=== PATIENT | female | born 1965 | race Caucasian/White ===

== ENCOUNTER 2018-01-25 17:54 | Observation (INO) | payer BC ==
[~2018-01-25] VITALS: Ht 167.6 cm; Wt 104.3 kg
[2018-01-25] MEDS: D5.45%NS/KCL 20MEQ 1,000 ML IV SCH (00:10)
[2018-01-25 20:13] LABS: BASOPHILS % 0.5 % (0.0-1.0); EOSINOPHILS # (AUTO) 0.2 (0.0-0.4); EOSINOPHILS % 4.3 % (0.0-6.0); HEMOGLOBIN 14.4 g/dL (12.0-16.0); LYMPHOCYTES # (AUTO) 1.9 (1.0-3.2); LYMPHOCYTES % 34.8 % (18.0-39.1); MEAN CORPUSCULAR HEMOGLOBIN 31.5 pg (28-32); MEAN CORPUSCULAR HGB CONC 32.7 g/dL (31-35); MEAN CORPUSCULAR VOLUME 96.3 fL (81-99); MONOCYTES # (AUTO) 0.5 (0.2-0.8); MONOCYTES % 9.2 % (4.4-11.3); NEUTROPHILS # (AUTO) 2.8 (2.1-6.9); PLATELET COUNT 175 x10e3/uL (140-360); RED BLOOD COUNT 4.57 x10e6/uL (3.6-5.1); RED CELL DISTRIBUTION WIDTH 11.9 % (11.7-14.4)
[2018-01-25 20:29] LABS: ALANINE AMINOTRANSFERASE 48 IU/L (0-55); ALBUMIN 3.8 g/dL (3.5-5.0); ALKALINE PHOSPHATASE 67 IU/L (40-150); ANION GAP 14.3 mmol/L (8-16); BLOOD UREA NITROGEN 8 mg/dL (7-26); BUN/CREATININE RATIO 11 (6-25); CALCIUM 9.4 mg/dL (8.4-10.2); CARBON DIOXIDE 23 mmol/L (22-29); CHLORIDE 104 mmol/L (98-107); CREATININE, SERUM 0.71 mg/dL (0.57-1.11); EST GLOMERULAR FILTRATION RATE > 60 ML/MIN (60-); POTASSIUM 3.3 mmol/L (3.5-5.1); SODIUM 138 mmol/L (136-145)
[2018-01-25 20:32] LABS: GLUCOSE 58 mg/dL (74-118); INR 0.97; PROTHROMBIN TIME 13.8 seconds (11.9-14.5)
[2018-01-25 20:33] LABS: PARTIAL THROMBOPLASTIN TIME 42.7 seconds (23.8-35.5)
[2018-01-25] MEDS ORDERED: GABAPENTIN300 MG PO (20:33)
[2018-01-25] MEDS ORDERED: HYDROCODON-ACE1 EA12 PO (20:33)
[2018-01-25] MEDS ORDERED: BELBUCA PO (20:33)
[2018-01-25] MEDS ORDERED: TIZANIDINE HCL4 MG PO (20:33)
[2018-01-25] MEDS ORDERED: DEXTROSE 50% SYRINGE 50 ML IV ONE ×2 (20:36→21:00)
[2018-01-25] MEDS ORDERED: D5NS/KCL 20MEQ 1,000 ML IV ONE (20:45)
[2018-01-25] MEDS ORDERED: DEXTROSE 5%/0.9% SOD CHL 1,000 ML IV SCH (20:45)
[2018-01-25] MEDS ORDERED: HYDROMORPHONE 1MG/1ML INJ IV PRN (21:00)
[2018-01-25] MEDS: PIPER-TAZ 3.375 GM 50 ML IV SCH (21:22)
[2018-01-25] MEDS: VANCOMYCIN 1GM/NS 250 ML 250 ML IV SCH (21:37)
[2018-01-25 22:30] VITALS: BP 130/62
[2018-01-25 23:00] VITALS: BP 130/62
[2018-01-26] VITALS (9 sets, daily range): BP systolic 98–122; BP diastolic 55–76
[2018-01-26 05:17] LABS: BASOPHILS % 0.6 % (0.0-1.0); EOSINOPHILS # (AUTO) 0.2 (0.0-0.4); EOSINOPHILS % 4.3 % (0.0-6.0); HEMATOCRIT 37.4 % (34.2-44.1); HEMOGLOBIN 12.7 g/dL (12.0-16.0); LYMPHOCYTES # (AUTO) 1.5 (1.0-3.2); MEAN CORPUSCULAR VOLUME 94.2 fL (81-99); MONOCYTES # (AUTO) 0.6 (0.2-0.8); MONOCYTES % 11.3 % (4.4-11.3); NEUTROPHILS # (AUTO) 2.6 (2.1-6.9); NEUTROPHILS % 52.6 % (38.7-80.0); PLATELET COUNT 155 x10e3/uL (140-360); RED BLOOD COUNT 3.97 x10e6/uL (3.6-5.1); RED CELL DISTRIBUTION WIDTH 11.9 % (11.7-14.4)
[2018-01-26 05:39] LABS: ALANINE AMINOTRANSFERASE 38 IU/L (0-55); ALBUMIN 3.1 g/dL (3.5-5.0); ALKALINE PHOSPHATASE 51 IU/L (40-150); ANION GAP 10.7 mmol/L (8-16); BLOOD UREA NITROGEN 6 mg/dL (7-26); BUN/CREATININE RATIO 9 (6-25); CALCIUM 8.5 mg/dL (8.4-10.2); CARBON DIOXIDE 24 mmol/L (22-29); CHLORIDE 107 mmol/L (98-107); CREATININE, SERUM 0.69 mg/dL (0.57-1.11); EST GLOMERULAR FILTRATION RATE > 60 ML/MIN (60-); GLUCOSE 115 mg/dL (74-118); POTASSIUM 3.7 mmol/L (3.5-5.1); SODIUM 138 mmol/L (136-145)
[2018-01-26] MEDS: PIPER-TAZ 3.375 GM 50 ML IV SCH ×3 (05:59→22:35)
[2018-01-26] MEDS: VANCOMYCIN 1GM/NS 250 ML 250 ML IV SCH (09:55)
[2018-01-26] MEDS: D5.45%NS/KCL 20MEQ 1,000 ML IV SCH (10:00)
--- NOTE | 2018-01-26 10:42 | NUR ---
CASE MANAGEMENT INITIAL ASSESSMENT H[employer] C[employer] Specialist to bedside to discuss plan of care with patient/family. CM/SW role and care transitions discussed. Anticipated discharge plan discussed along with duration of care. CM/SW discussed patients right to make decisions in care. CM/SW work hours given. 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 Name and number was also written on the patients whiteboard. Patient verbalized understanding of discussion. CM will follow-up with ongoing discharge and transition of care needs.
--- NOTE | 2018-01-26 17:10 | NUR ---
patient to OR at this time.
[2018-01-26] MEDS ORDERED: BUPIVACAINE 0.5%/EPI 30 ML SDV INJ ONE (17:22)
[2018-01-26] MEDS ORDERED: FENTANYL CITRATE/PF 100MCG/2 ML INJ ONE (17:52)
--- NOTE | 2018-01-26 18:14 | NUR ---
patient back from OR. alert and oriented. states pain improved. dressing dry and intact. meal provided. vitals stable.
--- NOTE | 2018-01-26 18:30 | Operative Report ---
DATE OF PROCEDURE: January 26, 2018 PREOPERATIVE DIAGNOSIS: Abdominal wall abscess. POSTOPERATIVE DIAGNOSIS: Abdominal wall abscess. OPERATIVE PROCEDURE: Incision and drainage of abdominal wall abscess. ANESTHESIA: General, Dr. Sultana. INDICATIONS: A 52-year-old female with a 1-week history of swelling, redness and tenderness in the abdominal wall which is consistent with abscess formation. Patient has consented for incisional drainage under anesthesia. Attendant risks discussed. PROCEDURE FINDINGS: Abscess in the deep subcutaneous tissue in the right lower quadrant abdominal wall. DESCRIPTION OF PROCEDURE: Patient was brought to the OR and placed in supine position. The abdomen was prepped with alcohol and draped in sterile fashion. Local anesthesia of half percent lidocaine and epinephrine was injected into the skin and subcutaneous tissue around the abscess area. A longitudinal incision was made approximately 3 cm on the roof of the abscess, deepening into the cavity. Purulent material was swabbed for culture and sensitivity. Digital exploration was carried out in the cavity to break up all loculation, which was then irrigated with saline solution. The wound was then packed with iodoform gauze tight for hemostasis, which was achieved. Dressing applied. Patient tolerated procedure well, was then transported after awakened from anesthesia to the recovery room. Estimated blood loss 3 mL. Job#: [id number] EV
--- NOTE | 2018-01-26 19:20 | NUR ---
Report received and walking rounds complete. Pt resting in bed and in no apparent distress. All safety measures ensured and pt call garcia near. Pt encouraged to use call garcia for assistance.
[2018-01-26] MEDS ORDERED: MIDAZOLAM HCL 2 MG/2 ML VIAL ONE (19:49)
[2018-01-26] MEDS ORDERED: LIDOCAINE HCL 2% LOCAL INJ 5 ML SDV VIAL INJ ONE (20:07)
[2018-01-26] MEDS ORDERED: ONDANSETRON HCL INJ 2 MG/ML VIAL ONE (20:07)
[2018-01-26] MEDS ORDERED: SEVOFLURANE INHAL SOLN 250 ML PEN BTL ONE (20:07)
[2018-01-26] MEDS ORDERED: PROPOFOL IV EMULSION 10 MG/ML 20 ML VIAL ONE (20:07)
[2018-01-26] MEDS ORDERED: DEXAMETHASONE SOD PHOS INJ 4 MG/ML VIAL ONE (20:07)
[2018-01-26] MEDS: ONDANSETRON HCL INJ 2 MG/ML VIAL IV PRN (22:35)
[2018-01-26] MEDS: HYDROMORPHONE 2MG/ML 2 MG/ML ML IV PRN (22:35)
[2018-01-27] VITALS (7 sets, daily range): BP systolic 88–122; BP diastolic 51–76
[2018-01-27] MEDS: VANCOMYCIN 1GM/NS 250 ML 250 ML IV SCH ×2 (01:24→13:58)
[2018-01-27] MEDS: D5.45%NS/KCL 20MEQ 1,000 ML IV SCH ×3 (01:24→16:08)
[2018-01-27] MEDS: PIPER-TAZ 3.375 GM 50 ML IV SCH ×3 (05:25→21:19)
--- NOTE | 2018-01-27 06:53 | NUR ---
report given to oncoming nurse
[2018-01-27] MEDS: ONDANSETRON HCL INJ 2 MG/ML VIAL IV PRN ×2 (09:43→21:40)
[2018-01-27] MEDS: HYDROMORPHONE 2MG/ML 2 MG/ML ML IV PRN ×3 (09:43→21:40)
--- NOTE | 2018-01-27 19:23 | NUR ---
Report received and walking rounds complete. Pt resting in bed and in no apparent distress. All safety measures ensured, bed alarm on, and pt call garcia near. Pt encouraged to use call garcia for assistance.
[2018-01-28] VITALS (7 sets, daily range): BP systolic 92–124; BP diastolic 50–72
[2018-01-28] MEDS: VANCOMYCIN 1GM/NS 250 ML 250 ML IV SCH ×2 (02:20→14:42)
[2018-01-28] MEDS: D5.45%NS/KCL 20MEQ 1,000 ML IV SCH ×3 (02:26→21:45)
[2018-01-28 05:46] LABS: BASOPHILS % 0.2 % (0.0-1.0); EOSINOPHILS # (AUTO) 0.1 (0.0-0.4); EOSINOPHILS % 1.8 % (0.0-6.0); HEMATOCRIT 36.3 % (34.2-44.1); LYMPHOCYTES # (AUTO) 2.2 (1.0-3.2); LYMPHOCYTES % 39.5 % (18.0-39.1); MEAN CORPUSCULAR HEMOGLOBIN 31.5 pg (28-32); MEAN CORPUSCULAR HGB CONC 33.1 g/dL (31-35); MEAN CORPUSCULAR VOLUME 95.3 fL (81-99); MONOCYTES # (AUTO) 0.5 (0.2-0.8); MONOCYTES % 8.9 % (4.4-11.3); NEUTROPHILS # (AUTO) 2.7 (2.1-6.9); NEUTROPHILS % 49.1 % (38.7-80.0); PLATELET COUNT 147 x10e3/uL (140-360); RED BLOOD COUNT 3.81 x10e6/uL (3.6-5.1); RED CELL DISTRIBUTION WIDTH 12.1 % (11.7-14.4)
[2018-01-28 05:59] LABS: ANION GAP 11.3 mmol/L (8-16); BLOOD UREA NITROGEN 10 mg/dL (7-26); BUN/CREATININE RATIO 14 (6-25); CALCIUM 8.4 mg/dL (8.4-10.2); CARBON DIOXIDE 23 mmol/L (22-29); CHLORIDE 108 mmol/L (98-107); CREATININE, SERUM 0.73 mg/dL (0.57-1.11); EST GLOMERULAR FILTRATION RATE > 60 ML/MIN (60-); GLUCOSE 93 mg/dL (74-118); MAGNESIUM 2.2 MG/DL (1.3-2.1); POTASSIUM 4.3 mmol/L (3.5-5.1); SODIUM 138 mmol/L (136-145)
[2018-01-28] MEDS: PIPER-TAZ 3.375 GM 50 ML IV SCH ×3 (06:04→22:00)
[2018-01-28 06:07] LABS: B-TYPE NATRIURETIC PEPTIDE2 177.4 pg/mL (0-100)
[2018-01-28 06:25] LABS: FREE T4 (FREE THYROXINE) 1.14 ng/dL (0.9-1.8); THYROID STIMULATING HORMONE 1.562 uIU/mL (0.350-4.940)
[2018-01-28] MEDS: ONDANSETRON HCL INJ 2 MG/ML VIAL IV PRN ×3 (06:49→14:57)
[2018-01-28] MEDS: HYDROMORPHONE 2MG/ML 2 MG/ML ML IV PRN (06:49)
--- NOTE | 2018-01-28 07:25 | NUR ---
report given to oncoming nurse
--- NOTE | 2018-01-28 07:30 | NUR ---
pt resting in bed, no s/s distress at this time. no c/o pain. will continue to monitor.
[2018-01-28] MEDS: MORPHINE SULFATE INJ 4 MG/ML INJ IV PRN ×2 (08:56→14:57)
--- NOTE | 2018-01-28 08:57 | NUR ---
per Isa SORTING MACHINE ATTENDANT, changing pain med. may give dose now with zofran. pt laying in bed, no s/s distress
[2018-01-28] MEDS ORDERED: BISMUTH SUBSALICYLATE 262 MG TAB PO PRN (12:00)
[2018-01-28] MEDS: ACETAMINOPHEN/CODEINE 300MG - 30MG TAB PO PRN ×2 (12:53→19:55)
--- NOTE | 2018-01-28 13:20 | NUR ---
CM SPOKE TO PATIENT AT BEDSIDE REGARDING HOME HEALTH ORDER BY MD. PATIENT INFORMED OF HOME HEALTH SERVICES AND VERBALLY AGREED. PATIENT STATES SHE DOES NOT HAVE ANY PREFERENCE. PATIENT GIVEN CHOICES COVERED BY INSURANCE AND NOT COVERED BY INSURANCE. PATIENT CHOSE [employer]. CHOICE LETTER SIGNED AND PLACED IN CHART. CLINICAL SENT TO [facility] @ [phone]. WOUND CARE INSTRUCTIONS NEED TO BE SENT IN AM AFTER SURGEON MAKES ROUNDS TONIGHT. SW NOTIFIED. PENDING ACCEPTANCE. [employer], [employer]. Address: [address] [place] [address], [facility] [address], [place] [address]
--- NOTE | 2018-01-28 22:00 | NUR ---
Patient in bed c/o of pain. Pain med given as ordered by MD.
[2018-01-29] VITALS: BP 84/50
[2018-01-29] MEDS: VANCOMYCIN 1GM/NS 250 ML 250 ML IV SCH (01:27)
--- NOTE | 2018-01-29 03:00 | NUR ---
Patient c/o of pain to abd. Given med as ordered by MD.
[2018-01-29 04:00] VITALS: BP 106/64
[2018-01-29] MEDS: PIPER-TAZ 3.375 GM 50 ML IV SCH (05:11)
[2018-01-29 05:46] LABS: BASOPHILS % 0.4 % (0.0-1.0); EOSINOPHILS # (AUTO) 0.3 (0.0-0.4); EOSINOPHILS % 6.5 % (0.0-6.0); HEMATOCRIT 37.8 % (34.2-44.1); HEMOGLOBIN 12.6 g/dL (12.0-16.0); LYMPHOCYTES # (AUTO) 1.3 (1.0-3.2); LYMPHOCYTES % 29.9 % (18.0-39.1); MEAN CORPUSCULAR HEMOGLOBIN 31.4 pg (28-32); MEAN CORPUSCULAR HGB CONC 33.3 g/dL (31-35); MEAN CORPUSCULAR VOLUME 94.3 fL (81-99); MONOCYTES # (AUTO) 0.4 (0.2-0.8); MONOCYTES % 9.9 % (4.4-11.3); NEUTROPHILS # (AUTO) 2.4 (2.1-6.9); NEUTROPHILS % 53.1 % (38.7-80.0); PLATELET COUNT 129 x10e3/uL (140-360); RED BLOOD COUNT 4.01 x10e6/uL (3.6-5.1); RED CELL DISTRIBUTION WIDTH 11.9 % (11.7-14.4)
[2018-01-29] MEDS: ACETAMINOPHEN/CODEINE 300MG - 30MG TAB PO PRN (06:00)
[2018-01-29 06:05] LABS: BLOOD UREA NITROGEN 8 mg/dL (7-26); BUN/CREATININE RATIO 11 (6-25); CALCIUM 8.2 mg/dL (8.4-10.2); CARBON DIOXIDE 23 mmol/L (22-29); CHLORIDE 109 mmol/L (98-107); CREATININE, SERUM 0.72 mg/dL (0.57-1.11); EST GLOMERULAR FILTRATION RATE > 60 ML/MIN (60-); GLUCOSE 87 mg/dL (74-118); MAGNESIUM 2.1 MG/DL (1.3-2.1); SODIUM 140 mmol/L (136-145)
[2018-01-29 08:41] VITALS: BP 103/63
--- NOTE | 2018-01-29 10:06 | NUR ---
Met with pt. She is independent and not home bound. Her dressing change is a simple gauze applied over wound. CM spoke with nurse and she will teach pt how to change her gauze, and she will not require home health. CM notified healthcare social worker. Pt to [facility] home today.
[2018-01-29] MEDS ORDERED: BACTRIM DS TAB1 EACH PO (10:09)
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
== END 2018-01-29 12:22 | disposition home or self-care (01) ==
LOC: ER 17:54 → ERHOLD 21:17 → IMCU 22:33
PROVIDERS: ADMIT Internal Medicine; ATTEND Internal Medicine
DX: L02.211 Cutaneous abscess of abdominal wall (principal); G89.21 Chronic pain due to trauma; Z82.49 Family history of ischemic heart disease and other diseases of the circulatory system; M19.90 Unspecified osteoarthritis, unspecified site; E87.6 Hypokalemia; E66.9 Obesity, unspecified; Z68.37 Body mass index [BMI] 37.0-37.9, adult; L03.311 Cellulitis of abdominal wall; E83.51 Hypocalcemia; E83.41 Hypermagnesemia; B96.89 Other specified bacterial agents as the cause of diseases classified elsewhere
CPT/HCPCS: 10060; 36415 ×4; 80048 ×2; 80053 ×2; 80202; 83036; 83735 ×2; 83880; 84439; 84443; 85025 ×4; 85610; 85730; 87040; 87071 ×2; 87075; 87186; 87205 ×2; 93005; 99284; G0378 ×5; J1100; J1170 ×3; J2001; J2250; J2270; J2405 ×3; J2543 ×5; J2704; J3370 ×5; J7799